=== PATIENT | female | born 1965 | race Caucasian/White ===

== ENCOUNTER 2020-04-30 08:51 | Emergency (ER) | payer OTHER ==
[~2020-04-30] VITALS: Ht 170.2 cm; Wt 83.9 kg
[2020-04-30 09:02] VITALS: BP 160/84; Ht 170.2 cm; Wt 83.9 kg
== END 2020-04-30 10:21 | disposition home or self-care (01) ==
LOC: ED 08:51
DX: L03.116 Cellulitis of left lower limb (principal)
CPT/HCPCS: 99406